=== PATIENT | male | born 1940 | race Caucasian/White ===

== ENCOUNTER 2019-09-23 10:18 | Day surgery (SDC) | payer MEDICARE, OTHER ==
[~2019-09-23 10:18] MED LIST: ASPI81CH; CARV25 PO; DIGO.25 PO; FURO40 PO; IRBE75 PO; LEVSOD150 PO; POTCHL20ER PO; WARF5 PO
== END 2019-09-23 22:59 | disposition home or self-care (01) ==
LOC: CT 10:18
DX: C79.51 Secondary malignant neoplasm of bone (principal); C61 Malignant neoplasm of prostate
CPT/HCPCS: 20225; 77012

== ENCOUNTER → 2020-04-22 | Outpatient (CLI) | payer MEDICARE, OTHER ==
[2020-04-22 09:41] LABS: Source, Urine Clean Catch
[2020-04-22 10:42] LABS: Bilirubin, Urine Neg (Neg); Blood, Urine 3+ (Neg); Glucose Qualitative, Urine Neg (Neg); Ketones, Urine Neg (Neg); Leukocyte Esterase, Urine Neg (Neg); Nitrite, Urine Neg (Neg); Protein, Urine 2+ (Neg); Specific Gravity, Urine 1.025 (1.003-1.022); Urobilinogen, Urine NORM (Normal)
[2020-04-22 11:04] LABS: Color, Urine Yellow (P-Yellow)
[2020-04-22 11:06] LABS: Appearance, Urine Clear (Clear)
[2020-04-22 11:07] LABS: Bacteria Rare /hpf; Squamous Epithelial Cells Rare /hpf (Few)
== END | disposition home or self-care (01) ==
LOC: LAB SHORT 09:40 → LAB 09:40
PROVIDERS: Internal Medicine
DX: R35.0 Frequency of micturition (principal)
CPT/HCPCS: 81001